=== PATIENT | female | born 1995 | race Caucasian/White ===

== ENCOUNTER 2020-12-15 09:47 | Emergency (ER) | payer SELFPAY ==
[2020-12-15 09:50] VITALS: BP 110/78; PULSE 101; RESP 20; TEMP 36.7; O2SAT 100; BMI 26.0
--- NOTE | 2020-12-15 10:05 | HMH.EDUTC ---
[facility] [place] Disposition Clinical Impression: UTI (urinary tract infection) Qualifiers: Urinary tract infection type: site unspecified Hematuria presence: with hematuria Qualified Code(s): N39.0 - Urinary tract infection, site not specified Disposition: Home, Self-Care Condition on Discharge: Good Instructions: Urinary Tract Infection, DI for Urinary Tract Infection (UTI), Cefdinir Additional Instructions: *Increase fluids. Water not Soda or Tea *Start antibiotic immediately and be sure to take as ordered for the FULL length of time although you should start to see improvement over the next 48 hours Be SURE to follow up anytime for new or worsening symptoms with your family doctor. AND in 48 hours for urine culture results with your family doctor, if you do not have a doctor then you may call back to the [facility] for urine culture results and further treatment. We do recommend that you choose and establish care with a Primary Care Physician. AND follow up with them in 10-14 days to repeat UA to ensure infection is resolved and blood no longer present *Be sure to let your PCP know that we sent urine cultures from the [facility] so they can follow up to ensure that you area the on the correct antibiotic Call your doctor office and make appointment for 48 hours (2 days from today) to follow up and get the results of your urine culture and further treatment Make sure to follow up to make sure that you are on the right medication Straight to ER if any worsening of fever, abdominal pain nausea vomiting or any life threatening symptoms Make sure to follow up with your family Doctor Prescriptions: Cefdinir [Omnicef 300mg Capsule] 300 mg PO BID #20 cap Transmission Status: Pending to [facility] Referrals: Provider,Referral, [Primary Care Provider] - As needed Time of Disposition: 10:31 Medical Decision Making - Guille Inquiry Pt receiving controlled substance: No Guille was queried for this patient: No Vital Signs: 12/15/20 09:50 12/15/20 10:19 Temperature 98.1 F 98.1 F Temperature Source Oral Pulse Rate 101 H Pulse Rate [Right Brachial] 101 H Respiratory Rate 20 20 Blood Pressure 110/78 Blood Pressure [Right Arm] 110/78 Blood Pressure Mean [Right Arm] 88 Blood Pressure Source [Right Arm] Automatic Cuff Blood Pressure Position [Right Arm] Sitting 02 Sat by Pulse Oximetry 100 Oxygen Delivery Method Room Air - Lab Data Lab results reviewed: Yes: I reviewed the patient's lab results. Lab Results 12/15/20 09:58: Urine Color Dark yellow, Urine Appearance Clear, Urine pH 6.0, Ur Specific [place] 1.025, Urine Protein 1+, Urine Glucose (UA) Negative, Urine Ketones 15, Urine Blood 1+, Urine Nitrate Positive A, Urine Bilirubin Negative, Urine Urobilinogen 0.2, Ur Leukocyte Esterase 3+ A Orders (Tests/Meds): ORDERS Category Date Time Status Urine Culture Stat Micro 12/15/20 10:00 Received Medical Decision Narrative: Discussed transfer to the ED if pain is having lower abdominal pain and further testing and patient declined State that she is not having any abdominal pain just achy like feeling in left flank area that comes and goes and advised she would go straight to ED if she started having abdominal pain or fever returned Patient is breast feeding infant will start on Cefdinir for UTI and send urine for culture [facility] [place] HPI - General Stated complaint: fever Time Seen by Provider: 12/15/20 10:06 Mode of Arrival: Ambulatory Source of Information: Patient, Spouse Limitations: No Limitations Description of Symptoms (Recalled from Triage Doc. by RN): PATIENT C/O FEVER THAT STARTED LAST WEEK, WENT AWAY, AND HAS SINCE COME BACK. ALSO C/O LEFT SIDE PAIN THAT IS INTERMITTEN. DENIES ANY OTHER SYMPTOMS HEENT Symptoms (Recalled from RN notes): No Resp Symptoms (Recalled from RN notes): No Skin Symptoms (Recalled from RN notes): No MS Symptoms (Recalled from RN notes): No Functional Status (Recalled from RN notes): WNL
[2020-12-15 10:08] LABS: Apearance,Urine Clear (Clear); Blood, Urine 1+ (Negative); Color,Urine Dark Yellow (Yellow); Glucose,Urine (UA) Negative (Negative); Ketones,Urine 15 (Negative); Protein,Urine 1+ (Negative); Specific Gravity, Urine 1.025 (1.005-1.030)
[2020-12-15 10:09] LABS: Bilirubin,Urine Negative (Negative); UTC Leukocyte Esterase,Urine 3+ (Negative); UTC Nitrate,Urine Positive (Negative); Urobilinogen,Urine 0.2 EU/dl (0.2)
[2020-12-15 10:19] VITALS: BP 110/78; PULSE 101; RESP 20; TEMP 36.7; O2SAT 100
== END 2020-12-15 10:33 | disposition home or self-care (01) ==
PROVIDERS: Emergency Provider Nurse Practitioner
DX: N39.0 Urinary tract infection, site not specified (principal)
CPT/HCPCS: 81003; 87086; 87088; 87186; 99202; G0463

== ENCOUNTER 2021-01-13 11:45 | Day surgery (SDC) | payer SELFPAY ==
[2021-01-13] VITALS (11 sets, daily range): BP systolic 107–130; BP diastolic 69–92; PULSE 62–95; RESP 14–20; TEMP 36.5–37; O2SAT 92–99; BMI 27.1
--- NOTE | 2021-01-13 12:21 | CT_ITS ---
PROCEDURE: CT ABDOMEN PELVIS W CON CLINICAL INDICATION: L flank pain Left lower quadrant pain, left flank and tenderness COMPARISON: CT ABDPELW CT ABD PELVIS W/ CONTRAST from 09/20/2015 TECHNIQUE: IV Contrast: 75ML Isovue 370 Oral Contrast None Axial images obtained with sagittal and coronal reformats. All CT scans at the facility use one or more dose reduction, viz: automated exposure control, ma/kV adjustment per patient size (including targeted exams where dose is matched to indication, i.e. head), or iterative reconstruction technique. FINDINGS: LOWER THORAX: No acute finding ABDOMEN & PELVIS: The liver, spleen, adrenal glands, and pancreas have an unremarkable appearance. The gallbladder is somewhat distended with a gallstone noted. The biliary tree is slightly prominent as well. There is severe left hydronephrosis and proximal hydroureter secondary to a 13 x 7 mm in the mid left ureter. The stone is at the L4-5 level. There is mild stranding of the left perinephric renal fat and periureteral fat. There are numerous right renal calculi measuring up to 8 mm in the lower pole. There are numerous unopacified bowel loops in the pelvis obscuring the outline of the uterus and the ovaries. There is a small amount fluid in the cul-de-sac. Urinary bladder wall appears slightly thickened. No evidence of appendicitis. No intestinal obstruction or free air. Bilateral pars defects are present at L5-S1 with 4 mm anterolisthesis of L5. IMPRESSION: 13 mm left mid ureteral stone with severe left hydronephrosis and hydroureter with mild stranding of the perinephric and periureteral fat. Right-sided nephrolithiasis. Cholelithiasis with minimal prominence of the biliary tree Dictated by: Fredo Cortes MD 01/13/2021 13:28 Fredo Cortes MD in [place] 01/13/2021 13:28
[2021-01-13 12:28] LABS: Microscopic, Urine URINE MICROSCOPIC (MICROSCOPIC)
[2021-01-13 12:29] LABS: Appearance,Urine TURBID (Clear); Bilirubin,Urine Negative (Negative); Blood, Urine 1+ (Negative); Color,Urine YELLOW (Yellow); Glucose,Urine (UA) Negative (Negative); Ketones,Urine Negative (Negative); Leukocyte Esterase,Urine 2+ (Negative); Nitrate,Urine POSITIVE (Negative); Protein,Urine TRACE (Negative); Specific Gravity, Urine 1.025 (1.005-1.030); Urobilinogen,Urine 0.2 EU/dl (0.2)
[2021-01-13 12:30] LABS: Basophils % 0.2 % (0.1-2.0); Eosinophils % 0.2 % (0.1-12.0); Hematocrit 35.7 % (37.0-47.0); Lymphocytes # 0.6 K/mm3 (0.7-4.5); Lymphocytes % 5.7 % (10-50); Mean Corpuscular HGB Conc 33.6 g/dL (31.8-35.4); Mean Corpuscular Hemoglobin 28.4 pg (27.0-31.2); Mean Corpuscular Volume 84.5 fl (81-99); Mean Platelet Volume 7.5 fl (7.4-10.4); Monocytes # 0.4 K/mm3 (0.1-1.0); Monocytes % 3.5 % (1.7-9.3); Neutrophils # 9.8 K/mm3 (1.8-7.8); Neutrophils % 90.5 % (37.0-80.0); Platelet Count 251 K/mm3 (142-424); Red Blood Count 4.22 M/mm3 (4.20-5.40); Red Cell Distribution Width 15.2 % (11.5-17.5); Urine Pregnancy, HCG Qual. Negative (Negative); White Blood Count 10.8 K/mm3 (4.8-10.8)
[2021-01-13 12:32] LABS: MANUAL DIFFERENTIAL MANUAL DIFFERENTIAL (MANUAL DIFF)
[2021-01-13 12:42] LABS: Lymphocytes % 5 % (10-50); Monocytes % 2 % (2-9); Neutrophils % 89 % (42-76); Total Cells Counted 100
[2021-01-13 12:43] LABS: Platelet Estimate Normal; RBC Morphology Normal
[2021-01-13 12:52] LABS: Bacteria,Urine 1+ /lpf
[2021-01-13 12:54] LABS: Alanine Aminotransferase 20 U/L (12-78); Albumin Level 4.2 g/dl (3.5-5.0); Albumin/Globulin Ratio 1.4 (1.1-1.8); Alkaline Phosphatase 46 U/L (38-126); Anion Gap 11.6 mEq/L (5-15); Aspartate Amino Transferase 25 U/L (14-36); Bilirubin,Total 0.4 mg/dl (0.2-1.3); Blood Urea Nitrogen 17 mg/dl (7-17); Calcium 8.8 mg/dl (8.4-10.2); Carbon Dioxide 26 mmol/L (22.0-30.0); Chloride 106 mmol/L (98-107); Creatinine Clearance Estimated 90 mL/min (50-200); Estimated Glomerular Filt Rate 67 ml/min (>60); GFR (African American) 80 ML/MIN (>60); Globulin 2.9 g/dL (1.3-3.2); Glucose 94 mg/dl (74-100); Lipase 48 U/L (23-300); Potassium 3.6 mmoL/L (3.5-5.1); Sodium 140 mmol/L (136-145); Total Protein,Serum 7.1 g/dl (6.3-8.2)
--- NOTE | 2021-01-13 13:02 | PC.NURSE ---
patient returned from CT
--- NOTE | 2021-01-13 13:05 | HMH.EDGENADL ---
ED Disposition Clinical Impression: Left ureteral calculus, Right nephrolithiasis Cholelithiasis Qualifiers: Cholelithiasis location: gallbladder Cholecystitis presence: without cholecystitis Biliary obstruction: without biliary obstruction Qualified Code(s): K80.20 - Calculus of gallbladder without cholecystitis without obstruction Disposition: Still a Patient Condition on Discharge: Fair Referrals: Provider,Referral, [Primary Care Provider] - - Critical Care Critical Care Time: No Attestation: On 01/13/21, the high probability of a clinically significant, sudden or life threatening deterioration of the following system(s) required my full and direct attention, intervention and personal management. The time I documented below is in addition to time spent performing reported procedures but includes the following listed in this critical care notation. Medical Decision Making - Medical Records Medical records reviewed: Yes: I reviewed the patient's medical records. MR Comment: Reviewed urgent treatment center visit 12/15/2020 and associated urine culture which showed E. coli, pansensitive. Treated with cefdinir. - Guille Inquiry Pt receiving controlled substance: Yes Guille was queried for this patient: Yes Risks and benefits of using a controlled substance: were discussed with pt by me Comment: Will need to pump and dump x1 Vital Signs: 01/13/21 11:47 Temperature 98.6 F Temperature Source Oral Pulse Rate [Left] 71 Respiratory Rate 16 Blood Pressure [Right Arm] 117/88 Blood Pressure Mean [Right Arm] 97 Blood Pressure Source [Right Arm] Automatic Cuff Blood Pressure Position [Right Arm] Supine 02 Sat by Pulse Oximetry 99 - Lab Data Lab Results 01/13/21 12:02: Urine Color Yellow, Urine Appearance Turbid, Urine pH 6.0, Ur Specific [place] 1.025, Urine Protein Trace, Urine Glucose (UA) Negative, Urine Ketones Negative, Urine Blood 1+, Urine Nitrate Positive, Urine Bilirubin Negative, Urine Urobilinogen 0.2, Ur Leukocyte Esterase 2+ A, Urine RBC None, Urine WBC 5-10, Ur Squamous Epith Cells None, Urine Bacteria 1+ 01/13/21 12:02: WBC 10.8, RBC 4.22, Hgb 12.0 L, Hct 35.7 L, MCV 84.5, MCH 28.4, MCHC 33.6, RDW 15.2, Plt Count 251, MPV 7.5, Neut % (Auto) 90.5 H, Lymph % (Auto) 5.7 L, [place] % (Auto) 3.5, Eos % (Auto) 0.2, Baso % (Auto) 0.2, Neut # (Auto) 9.8 H, Lymph # (Auto) 0.6 L, [place] # (Auto) 0.4, Eos # (Auto) 0.0, Baso # (Auto) 0.0, Total Counted 100, Neutrophils % (Manual) 89 H, Band Neutrophils % 4.0, Lymphocytes % (Manual) 5 L, Monocytes % (Manual) 2, Platelet Estimate Normal, RBC Morphology Normal 01/13/21 12:02: Urine HCG, Qual Negative 01/13/21 12:02: Sodium 140, Potassium 3.6, Chloride 106, Carbon Dioxide 26, Anion Gap 11.6, BUN 17, Creatinine 1.00, Estimated Creat Clear 90, Estimated GFR 67, Est GFR ( Amer) 80, Glucose 94, Calcium 8.8, Total Bilirubin 0.4, AST 25, ALT 20, Alkaline Phosphatase 46, Total Protein 7.1, Albumin 4.2, Globulin 2.9, Albumin/Globulin Ratio 1.4, Lipase 48 Result diagrams: 01/13/21 12:02 01/13/21 12:02 Orders (Tests/Meds): ED MEDICATIONS Discontinued Medications Generic Name Dose Route Start Last Admin Trade Name Saige PRN Reason Stop Dose Admin Hydromorphone HCl 1 mg 01/13/21 13:19 01/13/21 13:25 Hydromorphone 2mg/Ml Syringe IV 01/13/21 13:20 1 mg ONCE ONE Administration Iopamidol 75 ml 01/13/21 12:52 Iopamidol-370 (76%);100ml Bottle IV 01/13/21 12:53 ONCE ONE Ondansetron HCl 4 mg 01/13/21 13:19 01/13/21 13:25 Ondansetron 4mg/2ml Vial IV 01/13/21 13:20 4 mg ONCE ONE Administration Sodium Chloride 10 ml 01/13/21 12:52 Sodium Chloride 0.9% 10ml Syr (Rad Only) IV 01/13/21 12:53 ONCE ONE ORDERS Category Date Time Status Urine Culture Stat Micro 01/13/21 12:02 Received - CT Data CT Scan: Abdomen, Pelvis Time Received: 13:[address] Reviewed: Yes: I have viewed the radiologist's interpretation Findings Narrat
--- NOTE | 2021-01-13 13:35 | PC.NURSE ---
Called for DR Levi, talked to his office, he was in with patient, would call back when comes out of room.
--- NOTE | 2021-01-13 13:43 | PC.NURSE ---
NANETTE MITCHELL speaking with Dr. Rollins
--- NOTE | 2021-01-13 14:53 | HMH.ANESCL ---
[facility] Anesthesia Checklist - Structural Data Admitted From: Home Planned Operative Procedure/s: cysto w stent Consent for Planned Operative Procedure(s) Verified: Yes - Airway Assessment C-Spine Mobility Assessed: Yes TMJ Mobility Assessed: Yes Dentition: Poor Dentition - Neurological Assessment Level of Consciousness: Awake, Alert, Appropriate - Anesthesia Plan Anesthesia Risk discussed: Yes Anesthesia Plan: Verified ASA Class: II Anesthesia Type: General [facility] History I have reviewed the patient's past medical history: Yes *Have you ever received a pneumonia vaccine?: No *Have you received a flu vaccine this season?: No Anesthesia experience/problems:: none - *Social History Smoking Status: Never smoker Alcohol Intake: never Substance Use Type: denies use *Occupational Status:: other *Travel in the last 8 weeks: Inside the [facility] Family Hx:: No significant family history
--- NOTE | 2021-01-13 15:09 | XR_ITS ---
PROCEDURE: XR KUB CLINICAL INDICATION: CYSTO STENT PLACEMENT LEFT COMPARISON: CT CT ABDOMEN PELVIS W CON from 01/13/2021 FINDINGS: Fluoroscopy time: 45 seconds. Single image submitted demonstrates a left ureteral stent in place with proximal aspect curled over the left upper quadrant. The prominent ureteral stone is noted lateral to the stent at the L2-L3 level. IMPRESSION: Post placement of left ureteral stent with fluoroscopic guidance Dictated by: Fredo Cortes MD 01/13/2021 17:20 Fredo Cortes MD in [place] 01/13/2021 17:20
--- NOTE | 2021-01-13 15:15 | HMH.ANESI ---
[facility] Anesthesia Record Part I Intake, IV Amount: 300 Estimated blood loss (mL): 0 Urine output (mL): 0 Blood Pressure: 107/69 SaO2: 92 Pulse Rate: 90 Respiratory Rate: 14 Temperature: 98.1 F Patient is:: Drowsy Stable to PACU at:: 15:13
--- NOTE | 2021-01-13 16:26 | HMH.CONS ---
*Admission Date: 01/13/21 *Reason for consult:: Left flank pain due to an obstructing left proximal ureteral stone *History of present illness: Patient is a 25-year-old white female with a 3-month history of left-sided flank pain, intermittent fever, chills. She states that she delivered her fifth child 3 months ago but her discomfort has persisted. She has been treated for urinary tract infections by her family doctor. She presents to the emergency room today with continued left-sided flank pain. A CT scan was performed that showed a 13 mm left proximal ureteral stone with severe hydronephrosis. Patient's white count was normal. Her scan was reviewed and I discussed treatment options with her. [facility] History Medical History: Denies:: Asthma, Congestive Heart Failure, Diabetes Mellitus Type 1, Hepatitis, Lung Disease, Kidney Stones *Have you ever received a pneumonia vaccine?: No *Have you received a flu vaccine this season?: No Other Medical History: Denies: Anemia, Fibromyalgia, Hypothyroidism, Liver Disease Anesthesia experience/problems:: none Other Surgeries: Yes: - *Social History Last grade of school completed: High school graduate Smoking Status: Never smoker Alcohol Intake: never Substance Use Type: denies use *Occupational Status:: other *Travel in the last 8 weeks: Inside the [place] Family Hx:: No significant family history Review of Systems - Review of Systems Review of systems:: pertinent systems reviewed and negative unless documented below Meds Home Medications Medication Instructions Recorded Confirmed Type Cefdinir [Omnicef 300mg Capsule] 300 mg PO BID #20 cap 12/15/20 Rx Allergies Allergy/AdvReac Type Severity Reaction Status Date / Time No Known Allergies Allergy Verified 12/15/20 10:02 Exam Vital signs and Labs for Last 24 Hours: Temp Pulse Resp BP Pulse Ox 98 F 82 18 113/82 98 01/13/21 16:14 01/13/21 16:14 01/13/21 16:14 01/13/21 16:14 01/13/21 16:14 Laboratory Results - last 24 hr 01/13/21 12:02: Urine Color Yellow, Urine Appearance Turbid, Urine pH 6.0, Ur Specific [place] 1.025, Urine Protein Trace, Urine Glucose (UA) Negative, Urine Ketones Negative, Urine Blood 1+, Urine Nitrate Positive, Urine Bilirubin Negative, Urine Urobilinogen 0.2, Ur Leukocyte Esterase 2+ A, Urine RBC None, Urine WBC 5-10, Ur Squamous Epith Cells None, Urine Bacteria 1+ 01/13/21 12:02: WBC 10.8, RBC 4.22, Hgb 12.0 L, Hct 35.7 L, MCV 84.5, MCH 28.4, MCHC 33.6, RDW 15.2, Plt Count 251, MPV 7.5, Neut % (Auto) 90.5 H, Lymph % (Auto) 5.7 L, [place] % (Auto) 3.5, Eos % (Auto) 0.2, Baso % (Auto) 0.2, Neut # (Auto) 9.8 H, Lymph # (Auto) 0.6 L, [place] # (Auto) 0.4, Eos # (Auto) 0.0, Baso # (Auto) 0.0, Total Counted 100, Neutrophils % (Manual) 89 H, Band Neutrophils % 4.0, Lymphocytes % (Manual) 5 L, Monocytes % (Manual) 2, Platelet Estimate Normal, RBC Morphology Normal 01/13/21 12:02: Urine HCG, Qual Negative 01/13/21 12:02: Sodium 140, Potassium 3.6, Chloride 106, Carbon Dioxide 26, Anion Gap 11.6, BUN 17, Creatinine 1.00, Estimated Creat Clear 90, Estimated GFR 67, Est GFR ( Amer) 80, Glucose 94, Calcium 8.8, Total Bilirubin 0.4, AST 25, ALT 20, Alkaline Phosphatase 46, Total Protein 7.1, Albumin 4.2, Globulin 2.9, Albumin/Globulin Ratio 1.4, Lipase 48 I & O for Last 24 hours: Intake & Output 01/10/21 01/11/21 01/12/21 01/13/21 23:59 23:59 23:59 23:59 Intake Total 600 / 600 Balance 600 / 600 Weight 67.132 kg - Constitutional no acute distress - *Routine HEENT Exam Head: Present: normocephalic Eye: Present: EOMI, PERRL ENT: Present: mucous membranes moist - *Routine Neck Exam Present: supple. Absent: lymphadenopathy - *Routine Respiratory Exam Present: CTA bilaterally - *Routine Cardiovascular Exam Present: RRR. Absent: JVD - *Routine Abdominal Exam Present: soft. Absent: tenderness - *Routine Extremities Exam Absent: cyanosis, clubbing,
--- NOTE | 2021-01-13 16:31 | P.OP_ITS ---
Date of procedure: 01/13/21 Pre-op Diagnosis:: Left ureteral stone with hydronephrosis Post-op Diagnosis:: Left ureteral stone with hydronephrosis Procedure performed:: Cystoscopy with left stent placement Surgeon:: Bhupendra Rollins MD RACING CAR DRIVER:: Brijesh Frank Anesthesia: LMA Estimated blood loss (mL): 0 Clinical Note:: Patient is a 25-year-old white female who presents to the emergency room today with left renal colic. A CT scan shows a large proximal ureteral stone with obstruction. Operative findings:: Left proximal ureteral stone with evidence of sediment in the urine after stent placement. A urine culture was sent and stent was placed successfully. Operative note:: Patient taken to the operating room after informed consent was obtained. She was placed on the operating table in the supine position and general anesthesia administered. Preoperative IV antibiotics were given and sequential compression devices placed. She was then placed into the dorsal lithotomy position and prepped and draped in the standard surgical fashion. 22 [place]ankan cystoscope passed into the urethra and into the bladder without difficulty. The bladder showed no mucosal abnormalities, stones, trabeculation or cellule formation. The ureteral orifices in their normal anatomic position. A 5 [place]an ureteral c atheter passed into the left ureteral orifice and under fluoroscopy passed up to the level of the proximal ureteral stone. Once up to the stone a 0.035 sensor guidewire was passed through the ureteral catheter and it passed around a tortuous loop and by the stone and more proximally. The ureteral catheter was advanced over the wire and the ureter did straighten out. We then removed the ureteral catheter and passed a 6 x 24 [place]an stent over the guidewire and the guidewire and string removed. A good curl was noted proximally and distally. Visualization of the stent showed a brisk diuresis of some urine sediment from the stent. Urine culture was sent. The bladder drained and the scope removed. Urojet placed into the urethra for comfort measures. Patient transported to recovery in stable condition. She will be allowed to go home today with a course of cefdinir 300 mg twice daily. Plan on seeing her back next and that she is doing well we will plan ESWL on Saturday. Condition: stable Disposition: PACU Specimens:: Urine culture Complications:: None
--- NOTE | 2021-01-13 16:38 | HMH.DCSUM ---
General - General Admission date:: 01/13/2021 Discharge date: 01/13/21 HPI HPI: 25-year-old white female with 3-month history of left-sided flank pain and intermittent fevers presented to the emergency room today. A CT scan showed a large proximal left ureteral stone with severe hydronephrosis. White count and renal function were normal. Hospital Course Hospital Course: Patient was seen in the emergency room today. Urology was consulted and patient scans were reviewed and patient recommended to proceed to the operating room for stent placement for decompression of the hydronephrosis. I discussed the treatment course with the patient and her and she wished to proceed. The left stent was placed without difficulty and the left ureter did show tortuosity and a loop in the proximal ureter that straightened out with placement of the guidewire. A 6 x 24 Indonesian stent was placed and there was some sediment in the urine that came from the renal pelvis. Urine was cultured. Patient tolerated procedure well most discharged home with cefdinir 300 mg twice a day. Objective Vital signs: Temp Pulse Resp BP Pulse Ox 98 F 82 18 113/82 98 01/13/21 16:14 01/13/21 16:14 01/13/21 16:14 01/13/21 16:14 01/13/21 16:14 no acute distress - *Routine HEENT Exam Head: Present: normocephalic Eye: Present: EOMI, PERRL ENT: Present: mucous membranes moist - *Routine Neck Exam Present: supple - *Routine Respiratory Exam Present: CTA bilaterally - *Routine Cardiovascular Exam Present: RRR - *Routine Abdominal Exam Present: soft, normoactive bowel sounds. Absent: tenderness - *Routine Extremities Exam Absent: cyanosis, clubbing, edema - *Routine Skin Exam Present: warm. Absent: rash - Detailed Eye Exam Eyelids: Bilateral normal inspection Results Labs on day of discharge: Labs from last 24 hours 01/13/21 01/13/21 01/13/21 12:02 12:02 12:02 WBC 10.8 RBC 4.22 Hgb 12.0 L Hct 35.7 L MCV 84.5 MCH 28.4 MCHC 33.6 RDW 15.2 Plt Count 251 MPV 7.5 Neut % (Auto) 90.5 H Lymph % (Auto) 5.7 L [place] % (Auto) 3.5 Eos % (Auto) 0.2 Baso % (Auto) 0.2 Neut # (Auto) 9.8 H Lymph # (Auto) 0.6 L [place] # (Auto) 0.4 Eos # (Auto) 0.0 Baso # (Auto) 0.0 Total Counted 100 Neutrophils % (Manual) 89 H Band Neutrophils % 4.0 Lymphocytes % (Manual) 5 L Monocytes % (Manual) 2 Platelet Estimate Normal RBC Morphology Normal Sodium 140 Potassium 3.6 Chloride 106 Carbon Dioxide 26 Anion Gap 11.6 BUN 17 Creatinine 1.00 Estimated Creat Clear 90 Estimated GFR 67 Est GFR ( Amer) 80 Glucose 94 Calcium 8.8 Total Bilirubin 0.4 AST 25 ALT 20 Alkaline Phosphatase 46 Total Protein 7.1 Albumin 4.2 Globulin 2.9 Albumin/Globulin Ratio 1.4 Lipase 48 Urine Color Urine Appearance Urine pH Ur Specific [place] Urine Protein Urine Glucose (UA) Urine Ketones Urine Blood Urine Nitrate Urine Bilirubin Urine Urobilinogen Ur Leukocyte Esterase Urine RBC Urine WBC Ur Squamous Epith Cells Urine Bacteria Urine HCG, Qual Negative 01/13/21 12:02 WBC RBC Hgb Hct MCV MCH MCHC RDW Plt Count MPV Neut % (Auto) Lymph % (Auto) [place] % (Auto) Eos % (Auto) Baso % (Auto) Neut # (Auto) Lymph # (Auto) [place] # (Auto) Eos # (Auto) Baso # (Auto) Total Counted Neutrophils % (Manual) Band Neutrophils % Lymphocytes % (Manual) Monocytes % (Manual) Platelet Estimate RBC Morphology Sodium Potassium Chloride Carbon Dioxide Anion Gap BUN Creatinine Estimated Creat Clear Estimated GFR Est GFR ( Amer) Glucose Calcium Total Bilirubin AST ALT Alkaline Phosphatase Total Protein Albumin Globulin Albumin/Globulin Ratio Lipase Urine Color Yellow Urine Appea
--- NOTE | 2021-01-13 17:30 | HMH.ANESII ---
[facility] Anesthesia Record Part II Discharge Time: 15:43 Destination: Surgical Day Care (OP Surgery) PACU nurse assessment reviewed?: Yes Patient Condition:: Good Anesthesia Complications:: None Swallowing reflex intact?: Yes Cyanosis?: No Blood Pressure: 129/86 Pulse Rate: 95 Temperature: 98 F Mental Status: Alert & Oriented Pain level:: 0 Nausea and/or vomitting:: None Intake, IV Amount: 0
== END 2021-01-13 16:14 | disposition home or self-care (01) ==
LOC: ER 14:00 → SDC 15:30
PROVIDERS: Emergency Provider Emergency Medicine; Visit Provider Urology
PROC: (CPT 52000; principal; 2021-01-13 15:00)
DX: N13.2 Hydronephrosis with renal and ureteral calculous obstruction (principal); K80.20 Calculus of gallbladder without cholecystitis without obstruction
CPT/HCPCS: 52000; 74018; 74177; 80053; 81001; 81025; 83690; 85007; 85025; 87086; 87088; 87186; 96374; 96375; 99281; C2617; J2405

== ENCOUNTER → 2021-01-18 15:44 | Outpatient (CLI) | payer SELFPAY | PROVIDERS: Visit Provider Urology | DX: Z01.812 Encounter for preprocedural laboratory examination (principal); Z11.52 Encounter for screening for COVID-19; N20.1 Calculus of ureter | CPT/HCPCS: 36415; U0003 ==

== ENCOUNTER 2021-01-20 10:16 | Day surgery (SDC) | payer SELFPAY ==
[2021-01-17 10:21] VITALS: BMI 25.7
[2021-01-20] VITALS (12 sets, daily range): BP systolic 114–145; BP diastolic 63–99; PULSE 66–95; RESP 12–16; TEMP 36.2–43; O2SAT 97–99
--- NOTE | 2021-01-20 10:13 | XR_ITS ---
PROCEDURE: XR KUB CLINICAL INDICATION: preop COMPARISON: CT CT ABDOMEN PELVIS W CON from 01/13/2021 FINDINGS: Gas pattern- the bowel gas pattern is unremarkable. No obvious obstruction. Calcifications- Bilateral renal calculi are noted. The focal calculus projecting over the left renal outline likely corresponds to the right ureter calculus noted on the prior study. Double-J stent placement is noted on the left. Bones- No acute bony anomalies evident. IMPRESSION: Bilateral renal calculi, larger on the left measuring up to 1.5 centimeters. Left ureteric stent noted. Dictated by: Lexi Louis 01/20/2021 10:59 Lexi Louis in [place] 01/20/2021 10:59
--- NOTE | 2021-01-20 12:06 | P.PN_ITS ---
[facility] Anesthesia Checklist - Patient Identification Patient Identification: Arm Band - Structural Data Admitted From: Home Planned Operative Procedure/s: ESWL Consent for Planned Operative Procedure(s) Verified: Yes - NPO Status Verified Time NPO: 00:00 - Additional verifications Anesthesia Reactions: No Hx Blood Transfusions: No Blood Transfusion Reaction: No - Airway Assessment C-Spine Mobility Assessed: Yes TMJ Mobility Assessed: Yes Dentition: Good Dentition - Neurological Assessment Level of Consciousness: Awake Hx Seizures: No Numbness or tingling in extremities: No - Anesthesia Plan Anesthesia Risk discussed: Yes Anesthesia Plan: Verified ASA Class: I Anesthesia Type: General [facility] History I have reviewed the patient's past medical history: Yes Medical History: Denies:: Asthma, Cancer, Congestive Heart Failure, Diabetes Mellitus Type 1, Diabetes Mellitus Type 2, Hepatitis, Internal Pacemaker, Lung Disease, Kidney Stones, MRSA, Seizures *Have you ever received a pneumonia vaccine?: No *Have you received a flu vaccine this season?: No Other Medical History: Denies: Anemia, Blood Transfusion Reaction, Fibromyalgia, Hypothyroidism, Liver Disease Anesthesia experience/problems:: None Other Surgeries: Yes: . No: Pacemaker Amputation: No Fractures: No - *Social History Smoking Status: Never smoker Alcohol Intake: never Substance Use Type: denies use *Occupational Status:: other Housing: house Household Members: family *Travel in the last 8 weeks: None Family Hx:: No significant family history
--- NOTE | 2021-01-20 16:07 | HMH.ANESI ---
[facility] Anesthesia Record Part I Intake, IV Amount: 1,200 Estimated blood loss (mL): 0 Urine output (mL): 0 Blood Pressure: 138/87 SaO2: 98 Pulse Rate: 95 Respiratory Rate: 12 Temperature: 97.5 F Patient is:: Awake, Stable Stable to PACU at:: 16:05
--- NOTE | 2021-01-20 16:18 | HMH.OPNOTE ---
Date of procedure: 01/20/21 Pre-op Diagnosis:: Left renal stone/left distal ureteral stone Post-op Diagnosis:: 13 mm left renal stone/6 mm distal left ureteral stone Procedure performed:: ESWL of the left kidney stone/ESWL of the distal ureteral stone (2 separate procedures) Surgeon:: Bhupendra Rollins MD ASTRONOMY PROFESSOR:: Brijesh Frank Anesthesia: LMA Estimated blood loss (mL): 0 Clinical Note:: Patient is a 25-year-old white female status post stone cystoscopy with stone manipulation and left stent placement last week. Presents for ESWL today. Preoperative KUB reveals a large calcification in the renal pelvis as well as a calcification overlying the course of the stent in the distal ureter. Review of her films and CT scan are suspicious that this calcification in the pelvis is in the ureter. I discussed possible separate procedure of ESWL of the distal ureter versus ureteroscopy and stone extraction if imaging indicates the stone is in the ureter. Operative findings:: 13 mm stone in the left renal pelvis was fragmented very well with the lithotripter. Imaging revealed that the calcification in the distal ureter did appear to be in the ureter and ESWL was also performed of the stone with good fragmentation. Operative note:: Patient taken to the operating room after informed consent was obtained. She was placed on the operating table in the supine position and general anesthesia administered. Sequential compression devices and preoperative antibiotics were administered. Fluoroscopy revealed that the stone was overlying the stent on KUB does appear to be in the course of the ureter as well as the stone in the kidney. We decided to lithotripsy of both stones and in the supine position patient was padded and positioned in the appropriate fashion and the F2 was focused onto the distal ureteral stone. 3000 shockwaves were delivered to the stone at a maximum energy of 9. There was good fragmentation of the stone. We then turned our attention to the 13 mm left renal pelvis stone and 3000 shockwaves delivered to the stone as well with very good fragmentation. Stent remained in place during the procedure. Patient tolerated the procedure well. He was discharged to the recovery room in stable condition. I will see her back in 1 week with a KUB. Condition: stable Disposition: PACU Specimens:: None Complications:: None
--- NOTE | 2021-01-24 09:10 | HMH.ANESII ---
[facility] Anesthesia Record Part II Discharge Time: 16:35 Destination: [facility] PACU nurse assessment reviewed?: Yes Patient Condition:: Good Anesthesia Complications:: None Swallowing reflex intact?: Yes Cyanosis?: No Blood Pressure: 126/81 Pulse Rate: 80 Temperature: 97.1 F Mental Status: Alert & Oriented Pain level:: 32 Nausea and/or vomitting:: None Intake, IV Amount: 1,500
[2021-01-24 09:11] VITALS: BP 126/81; PULSE 80; TEMP 36.2
== END 2021-01-20 17:38 | disposition home or self-care (01) ==
LOC: OR 10:17
PROVIDERS: Visit Provider Urology
PROC: (CPT 50590; principal; 2021-01-20 12:00)
DX: N20.2 Calculus of kidney with calculus of ureter
CPT/HCPCS: 50590 ×2; 74018; 96374; J2405

== ENCOUNTER → 2021-01-26 10:32 | Outpatient (CLI) | payer SELFPAY ==
--- NOTE | 2021-01-26 10:36 | XR_ITS ---
PROCEDURE: XR KUB CLINICAL INDICATION: ureteral stone COMPARISON: CT ABDPELW CT ABD PELVIS W/ CONTRAST from 09/20/[address] ABDOMEN PELVIS W CON from 01/13/2021 CR XR KUB from 01/20/2021 FINDINGS: Left ureteral stent is present. Proximal aspect overlies the region of the left renal pelvis and distal aspect the region of the urinary bladder. There are bilateral renal calculi are present as before. There are multiple pelvic phleboliths. There may be a small residual stone fragment medial to the proximal aspect of the stent measuring approximately 3 mm. IMPRESSION: Bilateral nephrolithiasis. Interval insertion of left ureteral stent. Dictated by: Fredo Cortes MD 01/26/2021 13:31 Fredo Cortes MD in OV 01/26/2021 13:31
[2021-02-28 14:09] LABS: Specimen Type NOT PROVIDED
[2021-02-28 14:15] LABS: Calcium phosphate 90
== END ==
PROVIDERS: Visit Provider Urology
DX: N20.1 Calculus of ureter (principal); N20.0 Calculus of kidney
CPT/HCPCS: 74018; 82370

== ENCOUNTER 2021-01-30 08:38 | Day surgery (SDC) | payer SELFPAY ==
[2021-01-30 09:05] VITALS: BP 133/93; PULSE 70; RESP 14; TEMP 36.7; O2SAT 100; BMI 27.2
[2021-01-30 09:40] VITALS: BP 110/75; PULSE 70; RESP 18; TEMP 36.6; O2SAT 96
[2021-01-30 09:50] VITALS: BP 110/75; PULSE 70; RESP 18; TEMP 36.6; O2SAT 96
--- NOTE | 2021-01-30 13:03 | HMH.OPNOTE ---
Date of procedure: 01/30/21 Pre-op Diagnosis:: Kidney and ureteral stone status post left ureteral stent placement Post-op Diagnosis:: Same Procedure performed:: Cystoscopy with stent removal Surgeon:: Bhupendra Rollins MD Anesthesia: local Estimated blood loss (mL): 0 Clinical Note:: Patient is a 25-year-old white female with history of left kidney stone and left ureteral stone. She underwent a left ureteral stent placement stone manipulation and then subsequent left ESWL for the left kidney stone and left distal ureteral stone. Recent KUB shows fragmentation of the kidney stones and she has passed a lot of stone fragments. She is having some irritative voiding symptoms due to the stent and returns for stent removal today. Operative findings:: Bladder showed that the stent was in position and there is no evidence of stones in the bladder. Stent was removed without complication. Operative note:: Patient taken to the cystoscopy suite after informed consent was obtained. She was placed in the frog-leg position on the stretcher and prepped and draped in the standard surgical fashion and 2% lidocaine placed into the urethra. After 5 minutes the flexible cystoscope introduced into the urethra and passed into the bladder without difficulty. The stent was noted from the left ureteral orifice and flexible graspers placed through the scope and the stent grasped and removed without difficulty. Patient tolerated the procedure well. We discussed continued postural drainage and percussion at home as well as pushing fluids. We will see her back in 2 to 3 weeks with a KUB. Condition: stable Disposition: same day Specimens:: Left ureteral stent Complications:: None
== END 2021-01-30 09:50 | disposition home or self-care (01) ==
LOC: OUTP 08:39
PROVIDERS: Visit Provider Urology
PROC: (CPT 52310; principal; 2021-01-30 09:30)
DX: N20.0 Calculus of kidney (principal); Z96.0 Presence of urogenital implants
CPT/HCPCS: 52310

== ENCOUNTER 2022-03-11 15:27 | Outpatient (CLI) | payer SELFPAY ==
[2022-03-11 16:20] VITALS: BMI 30.9
[2022-03-11 16:21] VITALS: BP 114/70; PULSE 108; RESP 18; TEMP 36.8; O2SAT 100; BMI 30.9
[2022-03-11 16:28] LABS: Microscopic, Urine URINE MICROSCOPIC (MICROSCOPIC)
[2022-03-11 16:31] LABS: Appearance,Urine CLOUDY (Clear); Bilirubin,Urine Negative (Negative); Blood, Urine TRACE-I (Negative); Color,Urine YELLOW (Yellow); Glucose,Urine (UA) Negative (Negative); Ketones,Urine 2+ (Negative); Leukocyte Esterase,Urine 1+ (Negative); Nitrate,Urine POSITIVE (Negative); Protein,Urine TRACE (Negative); Urobilinogen,Urine 0.2 EU/dl (0.2)
[2022-03-11 16:43] LABS: Amphetamine/Metha Screen,Urine Negative ng/ml (<1000)
[2022-03-11 16:44] LABS: Barbiturates Screen,Urine Negative ng/ml (<200); Benzodiazepines Screen,Urine Negative ng/ml (<200)
[2022-03-11 16:45] LABS: Cannabinoid Screen,Urine Negative ng/ml (<50)
[2022-03-11 16:46] LABS: Bacteria,Urine 4+ /lpf; Cocaine Screen,Urine Negative ng/ml (<300); Methadone Screen,Urine Negative ng/ml (<300); Squamous Epithelial Cell,Urine 50-100 #/hpf (0-5)
[2022-03-11 16:47] LABS: Opiate Screen,Urine Negative ng/ml (<300); Phencyclidine Screen,Urine Negative ng/ml (<25)
--- NOTE | 2022-03-11 19:06 | P.PN_ITS ---
Subjective *Date: 03/11/22 *Time: 19:06 Interval history: Is a 27-year-old Evangelical lady who is a 7 para 5 aborta 1 who is she complains of lower abdominal pain and back pain. 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 She did have her first baby by section because of severe preeclampsia. Urinalysis shows nitrites and leukocyte Estrace. She has received IV fluids as well as 2 g of Ancef. She has a history of kidney stones. Medical Exam Vital signs and Labs for Last 24 Hours: Temp Pulse Resp BP Pulse Ox 98.2 F 108 H 18 114/70 100 03/11/22 16:21 03/11/22 16:21 03/11/22 16:21 03/11/22 16:21 03/11/22 16:21 Laboratory Results - last 24 hr 03/11/22 15:40: Urine Color Yellow, Urine Appearance Cloudy, Urine pH 6.0, Ur Specific [place] 1.020, Urine Protein Trace, Urine Glucose (UA) Negative, Urine Ketones 2+, Urine Blood Trace-i, Urine Nitrate Positive, Urine Bilirubin Negative, Urine Urobilinogen 0.2, Ur Leukocyte Esterase 1+ A, Urine RBC 3-5, Urine WBC 10-20, Ur Squamous Epith Cells 50-100, Urine Bacteria 4+ 03/11/22 15:40: Urine Opiates Screen Negative, Urine Methadone Screen Negative, Ur Barbituates Screen Negative, Ur Phencyclidine Scrn Negative, Ur Amphetamines Screen Negative, U Benzodiazepines Scrn Negative, Urine Cocaine Screen Negative, U Marijuana (THC) Screen Negative I & O for Labs for Last 24 Hours: Intake & Output 03/09/22 03/10/22 03/11/22 03/12/22 11:59 11:59 11:59 11:59 Weight 169 lb Head: Present atraumatic Neck: Present normal inspection GI: Present soft; Absent distention or tenderness Assessment and Plan *Assessment and plan (1) UTI (urinary tract infection): Status: Acute Qualifiers: Hematuria presence: with hematuria Urinary tract infection type: site unspecified Qualified Code(s): N39.0 - Urinary tract infection, site not specified; R31.9 - Hematuria, unspecified Category: Medical Code(s): N39.0 - Urinary tract infection, site not specified (2) Previous section complicating : Status: Acute Category: Surgical Code(s): O34.219 - Maternal care for unspecified type scar from previous delivery (3) : Status: Acute Qualifiers: Weeks of gestation: 29 weeks Qualified Code(s): Z3A.29 - 29 weeks gestation of Category: Medical Code(s): Z34.90 - Encounter for supervision of normal , unspecified, unspecified trimester Assessment and plan all Dx Assessment and Plan All Dx:: She has a urinary tract infection was having some lower abdominal pain. We gave her some IV antibiotics as well as IV fluids. She was having a few contractions and these have settled. Her cervix is long and closed. We will call her in a prescription for Keflex to take.
== END 2022-03-11 18:50 | disposition home or self-care (01) ==
LOC: OBOUT 15:31 → OB 15:31
PROVIDERS: Visit Provider Nurse Practitioner Obstetrics & Gynecology
DX: N39.0 Urinary tract infection, site not specified (principal); R31.9 Hematuria, unspecified; O34.219 Maternal care for unspecified type scar from previous cesarean delivery; Z3A.29 29 weeks gestation of pregnancy; B96.29 Other Escherichia coli [E. coli] as the cause of diseases classified elsewhere
CPT/HCPCS: 59025; 80305; 81001; 87086; 87088; 87186; 96365; G0463; J2505

== ENCOUNTER 2022-03-15 22:26 | Emergency (ER) | payer SELFPAY ==
[2022-03-15 22:28] VITALS: BP 104/61; PULSE 127; RESP 19; TEMP 37.6; O2SAT 98; BMI 30.5
--- NOTE | 2022-03-15 23:14 | PC.NURSE ---
Called OB, s/w Brunilda POP, let her known pt's c/o abd and R low back pain, fever, chills, and HR 180-185. Mother report baby has been active. Brunilda states they will be glad to check baby out if ER MD clears pt. . This RN s/w Dr. Sheriff regarding this and states, I'll be glad to see her if you all want me to see her but it sounds like a nursing issue . 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
[2022-03-15 23:30] VITALS: BP 98/54; PULSE 116; O2SAT 96
--- NOTE | 2022-03-15 23:38 | PC.NURSE ---
rechecked heart tones, 174-187 per doppler.
[2022-03-16] VITALS: BP 92/58; PULSE 113; O2SAT 97
--- NOTE | 2022-03-16 00:01 | HMH.EDPGI ---
Discharge Plan Disposition Patient Disposition: Home, Self-Care Chief Complaint: Abdominal Pain Prescriptions Prescriptions: No Action cephalexin 500 mg capsule 500 mg PO QID Referrals Follow up/Referrals: Provider,Referral, MD [Primary Care Provider] - See instructions Clinical Impressions Clinical Impression: UTI (urinary tract infection), Instructions Patient Instructions: DI for Urinary Tract Infection (UTI) Discharge ED Provider: Abrahan Sheriff Pediatric GI HPI General Chief Complaint: Abdominal Pain Stated Complaint: Fever,? UTI Time Seen by Provider: 03/16/22 00:01 Mode of Arrival: Family Vehicle Source of Information: Patient, Spouse and Medical Record Limitations: No Limitations Description of Symptoms (Recalled from ER Triage Doc. by RN): Pt is 7mn and c/o low abd pain and low back paion of R side. States is began Saturday (03/11) and she presents to OB here with Dr. Rick. They dx her with a UTI, she received 1L IVF andf [address] Rick prescribed Keflex 500mg PO BID. Pt c/o fever, chills, nausea and vomiting x1. She also reports that she saw her PCP on sat (03/14) and recevied a Rocephin IM injection and Keflex sent for 500 QID PO. Pt also reports dark black small amount of vaginal d/c. She did take 2 allergy pill with tylenol in them at 1930 today. FHT 180-185 and mother reports fetus is active. History of Present Illness HPI narrative: has known uti and on abx - reports no def vag bleeding - has fever and chills - complaint: nausea and vomiting Onset (ago): day(s) Fever: Yes Hydration status: tolerating fluids Activity level: normal Severity: moderate Associated symptoms: nausea Related Data Home Medications Medication Instructions Recorded Confirmed cephalexin 500 mg capsule 500 mg PO QID uti 03/15/22 03/15/22 Allergies Allergy/AdvReac Type Severity Reaction Status Date / Time No Known Allergies Allergy Verified 01/30/21 09:05 [facility] PFS Social History Smoking Status: Never smoker alcohol intake: never substance use type: denies use current occupational status: unemployed Travel in the last 8 weeks: None household members: spouse and family housing: house current occupational exposures/hazards: No caffeine: No ROS Obtained: Yes All systems reviewed & no additional complaints except as documented Constitutional Constitutional: Reports fever(s) and Denies headache(s) Eyes Eyes: Denies eye discharge ENT Ears, Nose, Mouth, and Throat: Denies dizziness, Denies dysphagia, Denies facial pain and Denies headache(s) Cardiovascular Cardiovascular: Denies chest pain with activity Respiratory Respiratory: Denies chest congestion and Denies cough Gastrointestinal Gastrointestingal: Denies dysphagia Genitourinary Female Genitourinary: Denies abnormal vaginal bleeding, Denies hematuria and Reports urinary frequency Musculoskeletal Musculoskeletal: Denies back pain Integumentary/Breasts Skin/Breast: Denies new lesions Neurologic Neurologic: Denies dizziness, Denies focal weakness and Denies headache(s) Physical Exam General General appearance: alert Head Head exam: normocephalic Eye Eye exam: Present PERRL and EOMI ENT ENT exam: Present mucous membranes moist Neck Neck exam: Present trachea midline Respiratory Respiratory exam: Absent respiratory distress Cardiovascular Cardiovascular exam: Present regular rate Abdominal Exam Abdominal exam: Present soft and other (gravid) Extremities Exam Extremities exam: Present full ROM Back Exam Back exam: Absent CVA tenderness (R) Neurological Exam Neurological exam: Present alert and CN II-XII intact Psychiatric Psychiatric exam: Present normal affect Skin Skin exam: Absent rash Medical Decision Making Medical Records Medical records reviewed: Yes I reviewed the patient's medical records. Guille Inquiry Pt receiving controlled substance: No Vital Signs:
--- NOTE | 2022-03-16 00:05 | PC.NURSE ---
at BS speaking with pt
[2022-03-16 00:16] LABS: Microscopic, Urine URINE MICROSCOPIC (MICROSCOPIC)
[2022-03-16 00:22] LABS: Appearance,Urine CLEAR (Clear); Bilirubin,Urine Negative (Negative); Blood, Urine TRACE-I (Negative); Color,Urine YELLOW (Yellow); Glucose,Urine (UA) Negative (Negative); Ketones,Urine Negative (Negative); Leukocyte Esterase,Urine TRACE (Negative); Nitrate,Urine Negative (Negative); Protein,Urine TRACE (Negative); Specific Gravity, Urine 1.015 (1.005-1.030); Urobilinogen,Urine 0.2 EU/dl (0.2)
[2022-03-16 00:23] LABS: Basophils % 0.2 % (0.1-2.0); Chloride 113 mmol/L (98-107); Eosinophils % 0.3 % (0.1-12.0); Hematocrit 33.4 % (37.0-47.0); Hemoglobin 11.1 g/dL (12.2-16.2); Lymphocytes # 0.3 K/mm3 (0.7-4.5); Lymphocytes % 5.6 % (10-50); Mean Corpuscular HGB Conc 33.3 g/dL (31.8-35.4); Mean Corpuscular Hemoglobin 31.6 pg (27.0-31.2); Mean Corpuscular Volume 94.7 fl (81-99); Mean Platelet Volume 8.9 fl (7.4-10.4); Monocytes # 0.2 K/mm3 (0.1-1.0); Monocytes % 4.1 % (1.7-9.3); Neutrophils # 4.6 K/mm3 (1.8-7.8); Neutrophils % 89.8 % (37.0-80.0); Platelet Count 126 K/mm3 (142-424); Potassium 3.2 mmoL/L (3.5-5.1); Red Blood Count 3.53 M/mm3 (4.20-5.40); Red Cell Distribution Width 13.5 % (11.5-17.5); Sodium 137 mmol/L (136-145); White Blood Count 5.1 K/mm3 (4.8-10.8)
[2022-03-16 00:26] LABS: Alanine Aminotransferase 19 U/L (12-78); Albumin Level 2.6 g/dl (3.5-5.0); Albumin/Globulin Ratio 0.9 (1.1-1.8); Alkaline Phosphatase 121 U/L (38-126); Anion Gap 9.2 mEq/L (5-15); Aspartate Amino Transferase 27 U/L (14-36); Blood Urea Nitrogen 20 mg/dl (7-17); Carbon Dioxide 18 mmol/L (22.0-30.0); Creatinine Clearance Estimated 83 mL/min (50-200); Estimated Glomerular Filt Rate 53 ml/min (>60); GFR (African American) 64 ML/MIN (>60); Total Protein,Serum 5.6 g/dl (6.3-8.2)
[2022-03-16 00:27] LABS: Glucose 84 mg/dl (74-100)
[2022-03-16 00:29] LABS: Bilirubin,Total < 0.1 mg/dl (0.2-1.3)
[2022-03-16 00:30] VITALS: BP 92/57; PULSE 111; O2SAT 96
[2022-03-16 00:30] LABS: MANUAL DIFFERENTIAL MANUAL DIFFERENTIAL (MANUAL DIFF)
[2022-03-16 00:35] LABS: Bacteria,Urine 1+ /lpf
[2022-03-16 00:43] LABS: Eosinophils % 1 % (0-3); Hypersegmented Neutrophils 1+; Lymphocytes % 9 % (10-50); Monocytes % 2 % (2-9); Neutrophils % 88 % (42-76); Total Cells Counted 100
[2022-03-16 00:44] LABS: Ovalocytes 1+
[2022-03-16 00:45] LABS: Platelet Estimate Normal
[2022-03-16 01:00] VITALS: BP 95/58; PULSE 106; RESP 17; O2SAT 96
--- NOTE | 2022-03-16 01:09 | PC.NURSE ---
Dr. Sheriff s/w Dr. Anderson. States is FHT are normal range, ok to d/c home.
[2022-03-16 01:27] VITALS: BP 97/59; PULSE 101; RESP 17; TEMP 36.9; O2SAT 98
--- NOTE | 2022-03-16 01:29 | PC.NURSE ---
FHT 144-152. Baby very active on visual exam of abdomen
[2022-03-16 01:30] VITALS: BP 97/59; PULSE 104; O2SAT 99
== END 2022-03-16 01:56 | disposition home or self-care (01) ==
PROVIDERS: Emergency Provider Emergency Medicine
DX: O23.43 Unspecified infection of urinary tract in pregnancy, third trimester (principal); N39.0 Urinary tract infection, site not specified
CPT/HCPCS: 80053; 81001; 85007; 85025; 87086; 99283

== ENCOUNTER → 2022-03-20 14:05 | Outpatient (CLI) | payer SELFPAY ==
--- NOTE | 2022-03-20 14:08 | XR_ITS ---
FINAL REPORT CLINICAL HISTORY: kidney stone COMPARISON: January 26, 2021 FINDINGS: SINGLE VIEW ABDOMEN A single view of the abdomen was obtained. The left ureteral stent has been removed. There is a nonobstructive bowel gas pattern. There are no abnormally dilated loops of small bowel. A 9 mm calcification projects over the right kidney. A fetus is seen in cephalic position. IMPRESSION: Right renal stone. Fetus in cephalic position. Reviewed, Interpreted and Dictated by Nazario Benoit MD Transcribed by Jourdan Jose Authenticated and [facility]
--- NOTE | 2022-03-20 15:08 | XR_ITS ---
PROCEDURE INFORMATION: Exam: XR Urography With Contrast Exam date and time: 03/20/2022 3:16 PM Age: 27 years old Clinical indication: Condition or disease; Patient HX: Patient has a kidney stone. She is . Dr agosto the urologist authorized limited ivp for stone evaluation and kidney function. TECHNIQUE: Imaging protocol: XR urography with intravenous contrast, with or without tomography. COMPARISON: CR XR KUB 03/20/2022 2:30 PM FINDINGS: Kidneys and ureters: [employer] imaging reveals gravid uterus with fetus in cephalic position. There is a 7.6 mm stone in the right side of the abdomen adjacent to the right transverse process of L4. Multiple phleboliths in the left lower pelvis. Kidneys are normal in size, shape, and position. Nephrograms are abnormal. There is left-sided dilatation but no filling defects of the renal calyces or renal pelvis. The left ureter is faintly visualized but the left UVJ is not well seen. There is no hydronephrosis on the right. Bladder: There is mass effect upon the bladder from the gravid uterus. The bladder is otherwise normal in size, shape, and contour. No filling defects are evident. There is no significant post-void residual IMPRESSION: There is moderate left hydronephrosis. No hydronephrosis on the right. 7.6 mm stone in the right side of the abdomen likely in the proximal right ureter.
== END ==
PROVIDERS: Visit Provider Urology
DX: N20.0 Calculus of kidney (principal)
CPT/HCPCS: 74018; 74400; Q9967

== ENCOUNTER 2022-03-22 09:48 | Day surgery (SDC) | payer SELFPAY ==
[2022-03-22] VITALS (9 sets, daily range): BP systolic 107–128; BP diastolic 60–83; PULSE 88–100; RESP 15–21; TEMP 36.4–36.6; O2SAT 96–100; BMI 29.2
[2022-03-22 10:10] LABS: Coronavirus 19, PCR Not Detected (NotDetected); Influenza A, PCR Not Detected (NotDetected); Influenza B, PCR Not Detected (NotDetected)
[2022-03-22 10:20] LABS: Urine Pregnancy, HCG Qual. Positive (Negative)
--- NOTE | 2022-03-22 11:04 | SUR.PREOP ---
OB RN at bedside with doppler, FHR 160
--- NOTE | 2022-03-22 11:10 | EXP.ANES.CKL ---
[facility] PFS Medical History Kidney stones, calcium oxalate Surgical History History of section Social History Smoking Status: Never smoker alcohol intake: never substance use type: denies use current occupational status: unemployed Travel in the last 8 weeks: None household members: spouse and family housing: house current occupational exposures/hazards: No caffeine: No [facility] Anesthesia Checklist Patient Identification Patient Identification: Arm Band and Verbal (Name & ) Structural Data Admitted From: Home Planned Operative Procedure/s: Cysto with stent placement Consent for Planned Operative Procedure(s) Verified: Yes NPO Status Verified Time NPO: 00:00 Additional verifications Patient : Yes Anesthesia Reactions: No Hx Blood Transfusions: No Blood Transfusion Reaction: No Airway Assessment C-Spine Mobility Assessed: Yes TMJ Mobility Assessed: Yes Dentition: Good Dentition Neurological Assessment Level of Consciousness: Awake Hx Seizures: No Numbness or tingling in extremities: No Anesthesia Plan Anesthesia Risk discussed: Yes Anesthesia Plan: Verified ASA Class: II Anesthesia Type: General
--- NOTE | 2022-03-22 13:04 | XR_ITS ---
FINAL REPORT CLINICAL HISTORY: RIGHT KIDNEY STENT PLACEMENT IN OR FLUORO TIME-0.20 FINDINGS: Fluoroscopic guidance was provided for the operating services. A single spot film was provided. 20 seconds of fluoroscopy time was utilized. IMPRESSION: 20 seconds of fluoroscopy time. Reviewed, Interpreted and Dictated by Nazario Benoit MD Transcribed by Jourdan Jose Authenticated and [facility]
--- NOTE | 2022-03-22 13:07 | EXP.ANES.I ---
[facility] Anesthesia Record Part I Anesthesia Record I Intake, IV Amount: 400 Estimated blood loss (mL): 0 Urine output (mL): 0 Blood Pressure: 124/83 SaO2: 96 Pulse Rate: 100 Respiratory Rate: 21 Temperature: 97.9 F Patient is:: Drowsy Stable to PACU at:: 13:05
--- NOTE | 2022-03-22 13:21 | SUR.PHASEI ---
Viraj Davis OB RN in PACU to check heart tones. heart tones were 161 bpm.
--- NOTE | 2022-03-22 13:28 | SUR.OPER ---
1230- heart tones taken by eric weinstein/ OB nurse prior to starting procedure. FHT noted at 167. 1305- heart tones taken by eric weinstein in pacu following procedure. FHT noted at 161.
--- NOTE | 2022-03-22 13:35 | SUR.PHASEI ---
1333 report given to Ne Flower RN [id number] transported via stretcher to post op. vital signs stable. denies flank pain. states burning pain in vaginal area and rates it at a 2. left in stable condition with Ne Flower RN at bedside.
--- NOTE | 2022-03-22 16:31 | EXP.OP.NOTE ---
Date of procedure: 03/22/22 Pre-op Diagnosis:: Right ureteral stone with obstruction Post-op Diagnosis:: Right ureteral stone with obstruction Procedure performed:: Cystoscopy with right stent placement Surgeon:: Bhupendra Rollins MD RESPIRATORY SUPPORT TECHNICIAN:: Silvio Ahmadi Anesthesia: LMA Estimated blood loss (mL): 0 Clinical Note:: 27-year-old white female who is 7 months with right flank pain and history of nephrolithiasis. Limited IVP shows an obstructing stone in the right proximal ureter. She presents for urologic management. Operative findings:: 8 mm stone noted in the right proximal ureter. Right ureteral stent was placed for decompression of the right ureter. There was excretion of brownish colored urine from the right kidney after stent was placed. Operative note:: Patient taken to the operating room after informed consent was obtained. She was placed on the operating table in the supine position and general anesthesia administered. Sequential compression devices placed and she had been on preoperative oral antibiotics. He was placed into the dorsal lithotomy position and prepped and draped in a standard surgical fashion. A 22 Enoc passed into the urethra and into the bladder. The bladder was examined in a systematic fashion and no abnormalities were noted. A 5 Canadian ureteral catheter passed into the right ureteral orifice and up to the level of the stone with there was resistance. Fluoroscopy was utilized during the case but sparingly. A lead apron was placed over the mid abdomen to shield the fetus as much as possible. A guidewire was passed through the ureteral catheter and it passed by the stone without difficulty. We attempted to push the stone more proximally but it would not go easily. We removed the ureteral catheter and placed a 6 x 24 Canadian stent over the guidewire and under fluoroscopy the guidewire was removed. A good curl was noted proximally and distally. Observation of the distal end of the stent revealed an abundance of dark-colored urine from the right renal pelvis indicating decompression. The bladder drained scope removed. Urojet placed into the urethra for comfort measures. Patient tolerated well no complications. Discussed the findings with the patient's . She is to finish up the cefdinir that has been previously given. She is to return to see me after she delivers her baby in 2 months for removal of the stone. He was reassured the stent can stay in until after delivery. Condition: stable Disposition: PACU Specimens:: None Complications:: None
--- NOTE | 2022-03-26 07:26 | P.PNANES_ITS ---
[facility] Anesthesia Record Part II Anesthesia Record Part II Discharge Time: 13:35 Destination: Surgical Day Care (OP Surgery) PACU nurse assessment reviewed?: Yes Patient Condition:: Good Anesthesia Complications:: None Swallowing reflex intact?: Yes Cyanosis?: No Blood Pressure: 128/79 Pulse Rate: 89 Temperature: 97.9 F Mental Status: Alert & Oriented Pain level:: 2 Nausea and/or vomitting:: None Intake, IV Amount: 0
[2022-03-26 07:27] VITALS: BP 128/79; PULSE 89; TEMP 36.6
== END 2022-03-22 14:06 | disposition home or self-care (01) ==
PROVIDERS: Visit Provider Urology
PROC: (CPT 52351; principal; 2022-03-22 12:30)
DX: N20.1 Calculus of ureter (principal); Z3A.00 Weeks of gestation of pregnancy not specified
CPT/HCPCS: 52351; 52332; 74018; 76000; 81025; C2617; C9803; U0003; U0005